=== PATIENT | female | born 1960 | race Caucasian/White ===

== ENCOUNTER 2017-06-30 09:14 | Day surgery (SDC) | payer BC ==
[2017-06-30] MEDS ORDERED: PROPOFOL 20 ML ONE ×2 (09:50)
[2017-06-30 09:58] VITALS: BMI 37.7
[2017-06-30 11:07] VITALS: TEMP 97.9
[2017-06-30 12:05] VITALS: BP 112/66; PULSE 51
--- NOTE | 2017-07-01 19:09 | PATH ---
Surgical Pathology Report Patient Name: ARCHIE WU [facility]. Rec. #: [id number] /Age/Gender: 1960 (Age: 57) / F Account: [id number] Location: [facility]-ENDOSCOPY Taken: 06/30/2017 Received: 06/30/2017 Reported: 07/01/2017 Physicians: María Velasquez M.D. Specimen(s) Received A: POLYP SIGMOID B: BX PROXIMAL TRANSVERSE COLON C: BX CECAL POLYP D: BX RIGHT COLON POLYP E: BX MID TRANSVERSE COLON F: RECTAL POLYP Clinical History Diverticulitis Diverticulosis, colon polyps, hemorrhoids Final Diagnosis A. SIGMOID COLON, POLYP, BIOPSY: HYPERPLASTIC POLYP. B. PROXIMAL TRANSVERSE COLON, POLYP, BIOPSY: COLONIC MUCOSA WITH UNDERLYING MATURE ADIPOSE TISSUE, SUGGESTIVE OF SUBMUCOSAL LIPOMA. C. CECUM, POLYP, BIOPSY: HYPERPLASTIC POLYP. D. COLON, RIGHT, POLYP, BIOPSY: POLYPOID COLONIC MUCOSA WITH LYMPHOID AGGREGATE AND SUPERFICIAL HYPERPLASTIC FEATURES. E. MID TRANSVERSE COLON, BIOPSY: POLYPOID COLONIC MUCOSA WITH LYMPHOID AGGREGATE AND SUPERFICIAL HYPERPLASTIC FEATURES. F. RECTUM, POLYP, BIOPSY: HYPERPLASTIC POLYP. Electronically Signed Loraine Balbuena M.D. Gross Description A. Received in formalin, labeled "sigmoid polyp" is a syed, irregular portion of soft tissue measuring 0.2 cm. in greatest dimension. The specimen is submitted in toto in one cassette. B. Received in formalin, labeled "proximal transverse colon polyp" is a syed, irregular portion of soft tissue measuring 0.3 cm. in greatest dimension. The specimen is submitted in toto in one cassette. C. Received in formalin, labeled "cecal polyps" are 5 syed, irregular portions of soft tissue averaging 0.1 cm. in greatest dimension. The specimens are submitted in toto in one cassette. D. Received in formalin, labeled "right colon polyp" are 4 syed, irregular portions of soft tissue ranging from 0.1-0.2 cm. in greatest dimension. The specimens are submitted in toto in one cassette. E. Received in formalin, labeled "mid transverse colon" is a syed, irregular portion of soft tissue measuring 0.3 cm. in greatest dimension. The specimen is submitted in toto in one cassette. F. Received in formalin, labeled "biopsy rectal colon polyp" are 2 syed, irregular portions of soft tissue averaging 0.2 cm. in greatest dimension. The specimens are submitted in toto in one cassette. 06/30/201706/30/2017
== END 2017-06-30 12:04 | disposition home or self-care (01) ==
LOC: JASU-ENDO 09:14
PROVIDERS: ATTEND Internal Medicine Gastroenterology
PROC: 0DBL8ZX Excision of Transverse Colon, Via Natural or Artificial Opening Endoscopic, Diagnostic (ICD-10-PCS; 2017-06-30)
PROC: 0DBN8ZX Excision of Sigmoid Colon, Via Natural or Artificial Opening Endoscopic, Diagnostic (ICD-10-PCS; 2017-06-30)
PROC: 0DBK8ZX Excision of Ascending Colon, Via Natural or Artificial Opening Endoscopic, Diagnostic (ICD-10-PCS; 2017-06-30)
PROC: 0DBP8ZX Excision of Rectum, Via Natural or Artificial Opening Endoscopic, Diagnostic (ICD-10-PCS; 2017-06-30)
PROC: 0DBH8ZX Excision of Cecum, Via Natural or Artificial Opening Endoscopic, Diagnostic (ICD-10-PCS; principal; 2017-06-30 10:00)
DX: Z12.11 Encounter for screening for malignant neoplasm of colon (principal); Z86.010 Personal history of colon polyps; Z80.0 Family history of malignant neoplasm of digestive organs; D12.2 Benign neoplasm of ascending colon; D12.0 Benign neoplasm of cecum; D12.5 Benign neoplasm of sigmoid colon; D12.3 Benign neoplasm of transverse colon; K62.1 Rectal polyp; K57.30 Diverticulosis of large intestine without perforation or abscess without bleeding
CPT/HCPCS: 88305-TC

== ENCOUNTER 2019-09-10 06:20 | Day surgery (SDC) | payer BC ==
[2019-09-09 10:39] VITALS: BMI 38.0
--- NOTE | 2019-09-10 07:07 | HP ---
History & Physical Update - Physical Physical: No Change - Assessment Assessment: No Change - Plan Plan: No Change (H&P reviwed , no changes , for hysteroscopy D&C)
[2019-09-10] MEDS ORDERED: SUCCINYLCHOLINE CHLORIDE 200 MG/10 ML SYRINGE ONE (07:29)
[2019-09-10] MEDS ORDERED: MIDAZOLAM HCL 2 MG/2 ML SINGLE DOSE VIAL ONE (07:29)
[2019-09-10] MEDS ORDERED: PROPOFOL 20 ML ONE ×2 (07:29)
[2019-09-10] MEDS ORDERED: IBUPROFEN 600 MG TABLET (FP) PO PRN (08:14)
[2019-09-10] MEDS ORDERED: oxyCODONE HCL 5 MG TABLET PO PRN (08:14)
[2019-09-10] MEDS ORDERED: IBUPROFEN 800 MG/8 ML IJ IVPB PRN (08:14)
[2019-09-10] MEDS ORDERED: ONDANSETRON 4 MG/2 ML VIAL IVPUSH PRN (08:14)
[2019-09-10] MEDS ORDERED: ELECTROLYTE-148 SOLN 1,000 ML IV SCH (08:15)
--- NOTE | 2019-09-10 08:29 | OP ---
Operative Note - Note: Operative Date: 09/10/19 Pre-Operative Diagnosis: postmenopausal vaginal bleeding Operation: hysteroscopy , D&C Findings: atrophic EM Surgeon: Guido Yang Anesthesiologist/TRADE SALES ASSISTANT: Hermila Hernandez Anesthesia: General Estimated Blood Loss (mls): 25 Drains & Tubes with Location: none Blood Volume Replaced (mls): 0 Operative Report Dictated: Yes
[2019-09-10] MEDS ORDERED: LACTATED RINGERS SOLUTION 1,000 ML IV SCH (09:15)
--- NOTE | 2019-09-10 10:22 | OP ---
DATE OF OPERATION: 09/10/2019 PREOPERATIVE DIAGNOSIS: Postmenopausal bleeding. POSTOPERATIVE DIAGNOSIS: Postmenopausal bleeding, atrophic endometrium. PROCEDURE: Hysteroscopy, dilation and curettage. SURGEON: Guido Yang MD ANESTHESIA: General. ANESTHESIOLOGIST: Hermila Hernandez MD ESTIMATED BLOOD LOSS: 25 mL. DESCRIPTION OF PROCEDURE: Patient was taken to operating room. Under adequate general anesthesia, abdomen and perineum and vagina were prepped and draped. Examination under anesthesia revealed external genitalia to be normal. Vagina was normal. Small rectocele. Uterus was normal size. Cervix was clean. No lesion. No adnexal masses were palpable. Then with the weighted speculum in the vagina, anterior lip of cervix was grasped with a single-tooth tenaculum. Cervix was gradually dilated with a Hegar dilator and then uterine cavity was sounded to 6 mm. Then hysteroscope was introduced. Visualization of endocervical canal appeared to be normal. Endometrium appeared to be atrophic and hemorrhagic but no polyp and no other abnormality noted. Both cornual regions were identified, and tubal ostia were visualized. Then hysteroscope was withdrawn and then endometrium curetted. Small amount of tissue was obtained. Patient tolerated procedure well. Left the OR in good condition. Muriel [id number]
[2019-09-10 12:34] VITALS: BP 120/66; PULSE 73; TEMP 97.8
--- NOTE | 2019-09-13 15:22 | PATH ---
Surgical Pathology Report Patient Name: ARCHIE WU [facility]. Rec. #: [id number] /Age/Gender: 1960 (Age: 59) / F Account: [id number] Location: [facility] Taken: 09/10/2019 Received: 09/10/2019 Reported: 09/13/2019 Physicians: Guido Yang M.D. Specimen(s) Received ENDOMETRIAL CURETTINGS Clinical History Postmenopausal bleeding Final Diagnosis ENDOMETRIAL CURETTINGS, DILATION AND CURETTAGE: FRAGMENTS OF ATROPHIC ENDOMETRIUM AND BENIGN CERVICAL TISSUE. Electronically Signed Loraine Balbuena M.D. Gross Description Received in formalin labeled "endometrial curettings," is a 0.7 x 0.5 x 0.1 cm aggregate of syed-brown soft tissue fragments. The formalin is filtered and the specimen is entirely submitted in one cassette. /09/10/2019 saudi09/10/2019
== END 2019-09-10 13:03 | disposition home or self-care (01) ==
LOC: JASU-SURG 06:20
PROVIDERS: ATTEND Obstetrics & Gynecology
PROC: 0UDB7ZX Extraction of Endometrium, Via Natural or Artificial Opening, Diagnostic (ICD-10-PCS; principal; 2019-09-10 07:30)
PROC: 0UJD8ZZ Inspection of Uterus and Cervix, Via Natural or Artificial Opening Endoscopic (ICD-10-PCS; 2019-09-10 07:30)
DX: N95.0 Postmenopausal bleeding (principal)
CPT/HCPCS: 88305-TC; 94760

== ENCOUNTER 2020-05-15 04:33 | Day surgery (SDC) | payer BC ==
[2020-05-10 14:15] VITALS: BMI 38.7
--- OUTSIDE RECORDS SUMMARY | 2020-05-15 04:37 | XMS ---
:1960 Author Organization [facility] Support Name Relationship Address Phone [facility], [facility] [phone] [place] [address] [facility] [place] [address] [employer]NICIAN [employer] [place] [place], [place] [id number] Re-disclosure Warning The records that you are about to access may contain information from federally- assisted alcohol or drug abuse programs. If such information is present, then the following federally mandated warning applies: This information has been disclosed to you from records protected by federal confidentiality rules (42 CFR part 2). The federal rules prohibit you from making any further disclosure of this information unless further disclosure is expressly permitted by the written consent of the person to whom it pertains or as otherwise permitted by 42 CFR part 2. A general authorization for the release of medical or other information is NOT sufficient for this purpose. The Federal rules restrict any use of the information to criminally investigate or prosecute any alcohol or drug abuse patient.The records that you are about to access may contain highly sensitive health information, the redisclosure of which is protected by Article 27-F of the [facility] Public Health law. If you continue you may haveaccess to information: Regarding HIV / AIDS; Provided by facilities licensed or operated by the [facility] Office of Mental Health; or Provided by the [facility] Office for People With Developmental Disabilities. If such information is present, then the following [facility] mandated warning applies: This information has been disclosed to you from confidential records which are protected by state law. State law prohibits you from making any further disclosure of this information without the specific written consent of the person to whom it pertains, or as otherwise permitted by law. Any unauthorized further disclosure in violation of state law may result in a fine or shelter sentence or both. A general authorization for the release of medical or other information is NOT sufficient authorization for further disclosure. Insurance Providers Payer name Policy type / Policy ID Covered Covered republican's Policy Plan Coverage type republican ID relationship to [place] Information [employer] BC PPO [id number] SP [id number] BC PPO [id number] SP [id number] PPO [id number] SP [id number] Results ID Date Data Source [id number] 05/11/2020 05:30:00 PM EDT [facility] Name Value Range Interpretation Description Data Sup porting Code Source(s) Document(s ) SARS [facility] coronavirus 2 RNA This lab was ordered by [facility] and reported by [facility]. ID Date Data Source [id number] 12/01/2019 04:59:00 PM EDT [facility] Name Value Range Interpretation Description Data Sup porting Code Source(s) Document(s ) SARS [facility] CORONAVIRUS 2 RNA This lab was ordered by [facility] and reported by [facility]. Procedure
[2020-05-15 08:33] VITALS: TEMP 96.8
[2020-05-15 09:45] VITALS: BP 113/63; PULSE 50
--- NOTE | 2020-05-16 13:25 | PATH ---
Surgical Pathology Report Patient Name: ARCHIE WU [facility]. Rec. #: [id number] /Age/Gender: 1960 (Age: 60) / F Account: [id number] Location: [facility]-ENDOSCOPY Taken: 05/15/2020 Received: 05/15/2020 Reported: 05/16/2020 Physicians: María Velasquez M.D. Specimen(s) Received A: RIGHT COLON POLYP B: SIGMOID POLYP Clinical History Screening Postoperative diagnosis: Diverticulosis, colon polyp sigmoid and right colon Final Diagnosis A. RIGHT COLON, POLYP, BIOPSY: HYPERPLASTIC POLYP. B. SIGMOID, POLYP, BIOPSY: SESSILE SERRATED POLYP. Electronically Signed Jessica Trejo M.D. Gross Description A. Received in formalin, labeled "right colon polyp" are 2 syed, irregular portions of soft tissue, each measuring 0.2 cm. in greatest dimension. The specimens are submitted in toto in one cassette. B. Received in formalin, labeled "sigmoid polyp" is a syed, irregular portion of soft tissue measuring 0.3 cm. in greatest dimension. The specimen is submitted in toto in one cassette. DL/05/15/2020 saudi/05/15/2020
== END 2020-05-15 09:45 | disposition home or self-care (01) ==
LOC: JASU-ENDO 04:33 → EDSTATUS 11:31
PROVIDERS: ATTEND Internal Medicine Gastroenterology
PROC: 0DBN8ZX Excision of Sigmoid Colon, Via Natural or Artificial Opening Endoscopic, Diagnostic (ICD-10-PCS; 2020-05-15)
PROC: 0DBK8ZX Excision of Ascending Colon, Via Natural or Artificial Opening Endoscopic, Diagnostic (ICD-10-PCS; principal; 2020-05-15 08:00)
DX: Z12.11 Encounter for screening for malignant neoplasm of colon (principal); D12.2 Benign neoplasm of ascending colon; D12.5 Benign neoplasm of sigmoid colon; Z86.010 Personal history of colon polyps; K64.8 Other hemorrhoids; K57.30 Diverticulosis of large intestine without perforation or abscess without bleeding
CPT/HCPCS: 88305-TC

== ENCOUNTER 2022-04-08 15:30 | Emergency (ER) | payer BC ==
[2022-04-08 16:05] VITALS: BP 125/79; PULSE 75; RESP 18; TEMP 99; BMI 39.3
[2022-04-08] MEDS ORDERED: SODIUM CHLORIDE 1,000 ML IV STA (16:31)
[2022-04-08 17:15] LABS: ALBUMIN 3.9 g/dl (3.4-5.0); CALCIUM 9.6 mg/dl (8.5-10); MAGNESIUM 2.1 mg/dL (1.8-2.4); TOT PROT 6.9 g/dl (6.4-8.2)
[2022-04-08 17:28] LABS: HEMATOCRIT 40.2 % (32.4-45.2); HEMOGLOBIN 13.2 G/dL (10.7-15.3); MCH 23.2 pg (25.7-33.7); MCHC 32.7 g/dl (32.0-36.0); MEAN PLT VOLUME 9.3 fl (7.5-11.1); RBC 5.66 10^6/uL (3.60-5.2); RDW 17.1 % (11.6-15.6); WHITE BLOOD COUNT 7.7 10^3/uL (4.0-10.8)
[2022-04-08 18:43] LABS: EPITHELIAL CELLS FEW /hpf
[2022-04-08 18:45] LABS: ANISOCYTOSIS 1+; PLATELET ESTIMATE ADEQUATE
[2022-04-08] MEDS ORDERED: ACETAMINOPHEN 1000 MG/100 ML BAG IVPB ONE (19:42)
[2022-04-08] MEDS ORDERED: ACETAMINOPHEN INJECTION 100 ML IVPB ONE (19:42)
== END 2022-04-08 20:16 | disposition home or self-care (01) ==
LOC: FER 15:30
PROC: 3E0333Z Introduction of Anti-inflammatory into Peripheral Vein, Percutaneous Approach (ICD-10-PCS; principal; 2022-04-08)
PROC: 3E0337Z Introduction of Electrolytic and Water Balance Substance into Peripheral Vein, Percutaneous Approach (ICD-10-PCS; 2022-04-08)
DX: R10.31 Right lower quadrant pain (principal); R19.7 Diarrhea, unspecified
CPT/HCPCS: 36415; 74177-TC; 80053; 81003; 81015; 83605; 83735; 84100; 85027; 87086; 99285-25; Q9967

== ENCOUNTER 2024-03-03 16:35 | Emergency (ER) | payer OTHER, BC ==
[2024-03-03 17:24] LABS: ALK PHOS 66 U/L (45-117); ANION GAP 7 mmol/L (4-13); BILIRUBIN,TOTAL 0.9 mg/dl (0.2-1); CALCIUM 9.5 mg/dl (8.5-10.1); CHLORIDE 105 mmol/L (98-107); CO2 28 mmol/L (21-32); CREATININE 1.1 mg/dl (0.6-1.3); GLUCOSE,RANDOM 115 mg/dl (74-106); MAGNESIUM 2.1 mg/dL (1.8-2.4); POTASSIUM 3.8 mmol/L (3.5-5.1); SGOT/AST 19 U/L (15-37); SGPT/ALT 27 U/L (7-52); SODIUM 140 mmol/L (136-145); TOT PROT 6.2 g/dl (6.4-8.2)
[2024-03-03 17:26] LABS: HEMATOCRIT 41.4 % (32.4-45.2); HEMOGLOBIN 12.9 G/dL (10.7-15.3); MCH 22.5 pg (25.7-33.7); MEAN CELL VOLUME 72.5 fl (80-96); MEAN PLT VOLUME 9.5 fl (7.5-11.1); RBC 5.71 10^6/uL (3.60-5.2); RDW 17.1 % (11.6-15.6); WHITE BLOOD COUNT 6.7 10^3/uL (4.0-10.8)
[2024-03-03 17:27] VITALS: BP 94/63; PULSE 65; RESP 18; TEMP 99.3; BMI 37.5
[2024-03-03 17:41] LABS: PLATELET ESTIMATE ADEQUATE
[2024-03-03 18:57] LABS: N-TERMINAL BNP 160.2 pg/ml (5-125)
== END 2024-03-03 19:07 | disposition home or self-care (01) ==
LOC: FER 16:35
DX: M54.9 Dorsalgia, unspecified (principal); R07.9 Chest pain, unspecified; R06.02 Shortness of breath; R05.9 Cough, unspecified; Z20.822 Contact with and (suspected) exposure to COVID-19
CPT/HCPCS: 0241U-QW; 36415; 71046-TC-FY; 80053; 83735; 83880; 84484; 85027; 93005; 99285-25

== ENCOUNTER 2024-04-08 15:07 | Emergency (ER) | payer OTHER, BC ==
[2024-04-08 15:45] VITALS: BP 115/94; PULSE 80; RESP 16; TEMP 100.6; BMI 39.4
[2024-04-08] MEDS ORDERED: ALBUTEROL SO4 2.5/IPRATROPIUM 0.5 INH SOL 3 ML VIAL.NEB. NEB ONE (16:14)
[2024-04-08] MEDS: ALBUTEROL SO4 2.5/IPRATROPIUM 0.5 INH SOL 3 ML VIAL.NEB. NEB ONE (16:29)
[2024-04-08] MEDS ORDERED: ACETAMINOPHEN 325 MG TABLET (FP) ONE (16:55)
[2024-04-08] MEDS: ACETAMINOPHEN 500 MG TABLET (FP) PO ONE (17:05)
== END 2024-04-08 17:22 | disposition home or self-care (01) ==
LOC: FER 15:07
PROC: 3E0F7GC Introduction of Other Therapeutic Substance into Respiratory Tract, Via Natural or Artificial Opening (ICD-10-PCS; principal; 2024-04-08)
DX: U07.1 COVID-19 (principal); J44.1 Chronic obstructive pulmonary disease with (acute) exacerbation
CPT/HCPCS: 0241U-QW; 71046-TC-FY; 93005; 99285-25

== ENCOUNTER 2024-04-11 08:48 | Emergency (ER) | payer OTHER, BC ==
[2024-04-11 09:01] VITALS: BMI 39.4
[2024-04-11] MEDS ORDERED: ACETAMINOPHEN INJECTION 100 ML ONE (09:10)
[2024-04-11] MEDS ORDERED: LOPERAMIDE HCL 2 MG CAPSULE ONE (09:10)
[2024-04-11] MEDS: LOPERAMIDE HCL 2 MG CAPSULE PO ONE (09:28)
[2024-04-11] MEDS: ACETAMINOPHEN 1000 MG/100 ML BAG IVPB ONE (09:28)
[2024-04-11] MEDS: SODIUM CHLORIDE 1,000 ML IV STA (09:29)
[2024-04-11 10:05] LABS: HEMATOCRIT 41.4 % (32.4-45.2); HEMOGLOBIN 12.9 G/dL (10.7-15.3); MCH 21.8 pg (25.7-33.7); MCHC 31.2 g/dl (32.0-36.0); MEAN CELL VOLUME 69.8 fl (80-96); MEAN PLT VOLUME 9.5 fl (7.5-11.1); PLATELET COUNT 190.5 10^3/uL (134-434); RBC 5.93 10^6/uL (3.60-5.2); RDW 17.3 % (11.6-15.6); WHITE BLOOD COUNT 9.8 10^3/uL (4.0-10.8)
[2024-04-11 10:26] LABS: ALBUMIN 3.8 g/dl (3.4-5.0); ALK PHOS 70 U/L (45-117); ANION GAP 12 mmol/L (4-13); ANISOCYTOSIS 1+; BILIRUBIN,TOTAL 0.9 mg/dl (0.2-1); CALCIUM 9.2 mg/dl (8.5-10.1); CHLORIDE 102 mmol/L (98-107); CO2 20 mmol/L (21-32); CREATININE 1.2 mg/dl (0.6-1.3); GLUCOSE,RANDOM 130 mg/dl (74-106); PLATELET ESTIMATE ADEQUATE; POTASSIUM 3.7 mmol/L (3.5-5.1); SGOT/AST 25 U/L (15-37); SGPT/ALT 24 U/L (7-52); SODIUM 134 mmol/L (136-145); TOT PROT 6.5 g/dl (6.4-8.2)
[2024-04-11 12:11] VITALS: BP 103/65; PULSE 72; RESP 16; TEMP 99.5
[2024-04-11] MEDS ORDERED: AMOX TR/POT CLAV 875MG/125MG TABLETS (FP) ONE (12:31)
[2024-04-11] MEDS: AMOX TR/POT CLAV 875MG/125MG TABLETS (FP) PO ONE (12:36)
== END 2024-04-11 13:09 | disposition home or self-care (01) ==
LOC: FER 08:48
PROC: 3E033NZ Introduction of Analgesics, Hypnotics, Sedatives into Peripheral Vein, Percutaneous Approach (ICD-10-PCS; principal; 2024-04-11)
PROC: 3E0337Z Introduction of Electrolytic and Water Balance Substance into Peripheral Vein, Percutaneous Approach (ICD-10-PCS; 2024-04-11)
DX: K52.9 Noninfective gastroenteritis and colitis, unspecified (principal); R50.9 Fever, unspecified; R05.9 Cough, unspecified; R53.83 Other fatigue; R10.84 Generalized abdominal pain
CPT/HCPCS: 36415; 74177-TC; 80053; 85027; 99285-25; J0131; Q9967

== ENCOUNTER 2024-04-21 13:59 | Inpatient (IN) | payer OTHER, BC ==
[2024-04-21] MEDS ORDERED: KETOROLAC TROMETHAMINE 30 MG/1 ML VIAL ONE (15:19)
[2024-04-21] MEDS: KETOROLAC TROMETHAMINE 30 MG/1 ML VIAL IVPUSH ONE (15:25)
[2024-04-21 15:54] LABS: HEMATOCRIT 40.3 % (32.4-45.2); HEMOGLOBIN 12.3 G/dL (10.7-15.3); MCH 21.6 pg (25.7-33.7); MCHC 30.4 g/dl (32.0-36.0); MEAN PLT VOLUME 9.8 fl (7.5-11.1); PLATELET COUNT 398.2 10^3/uL (134-434); RBC 5.68 10^6/uL (3.60-5.2); RDW 17.9 % (11.6-15.6); WHITE BLOOD COUNT 13.5 10^3/uL (4.0-10.8)
[2024-04-21 16:02] LABS: PLATELET ESTIMATE ADEQUATE
[2024-04-21 16:30] LABS: ALBUMIN 4.1 g/dl (3.4-5.0); BILIRUBIN,TOTAL 1.5 mg/dl (0.2-1); CALCIUM 9.9 mg/dl (8.5-10.1); CREATININE 0.9 mg/dl (0.6-1.3); POTASSIUM 4.2 mmol/L (3.5-5.1); TOT PROT 6.9 g/dl (6.4-8.2)
[2024-04-21] MEDS: SODIUM CHLORIDE 0.9% 500 ML INFUS.BAG IV ONE (16:47)
[2024-04-21] MEDS ORDERED: morphine SULFATE 4 MG/ML VIAL ONE (17:00)
[2024-04-21] MEDS ORDERED: methylPREDNISolone NA SUCC 125 MG/2 ML VIAL ONE (17:01)
[2024-04-21] MEDS: methylPREDNISolone NA SUCC 125 MG/2 ML VIAL IVPUSH ONE (17:10)
[2024-04-21] MEDS: morphine CARPU-JECT 4 MG/1 ML DISP.SYRIN IVPUSH ONE (17:14)
[2024-04-21 21:06] LABS: URIC ACID 5.3 mg/dl (2.6-7.2)
[2024-04-21] MEDS: ACETAMINOPHEN 325 MG TABLET (FP) PO PRN (21:34)
[2024-04-21] MEDS: oxyCODONE HCL 5 MG TABLET PO PRN (21:35)
[2024-04-22] MEDS: LEVOTHYROXINE NA 75 MCG TABLET (FP) PO SCH (06:46)
[2024-04-22 08:36] LABS: CALCIUM 9.1 mg/dl (8.5-10.1); CREATININE 0.9 mg/dl (0.6-1.3); POTASSIUM 4.2 mmol/L (3.5-5.1)
[2024-04-22 09:50] LABS: BASO % 0.2 % (0-2.0); HEMATOCRIT 32.7 % (32.4-45.2); HEMOGLOBIN 10.3 GM/dL (10.7-15.3); LYMPH % 8.1 % (8-40); MCH 21.6 pg (25.7-33.7); MCHC 31.5 g/dl (32.0-36.0); MEAN CELL VOLUME 68.6 fl (80-96); MEAN PLT VOLUME 8.8 fl (7.5-11.1); MONO % 6.9 % (3.8-10.2); NEUT % 84.8 % (42.8-82.8); PLATELET COUNT 351 10^3/uL (134-434); RBC 4.77 M/mm3 (3.60-5.2); RDW 15.4 % (11.6-15.6); WHITE BLOOD COUNT 11.1 K/mm3 (4.0-10.0)
[2024-04-22] MEDS ORDERED: predniSONE 20 MG TABLET (UD) PO SCH (10:00)
[2024-04-22] MEDS ORDERED: ALLOPURINOL 100 MG TABLET (FP) PO SCH (10:00)
[2024-04-22] MEDS: oxyCODONE HCL 5 MG TABLET PO PRN (10:06)
[2024-04-22] MEDS: COLCHICINE 0.6 MG TAB PO SCH (10:07)
[2024-04-22] MEDS: ENOXAPARIN NA (PORCINE) 40 MG/0.4 ML DISP.SYRIN SQ SCH (10:08)
[2024-04-22] MEDS: SODIUM CHLORIDE 1,000 ML IV SCH (10:09)
[2024-04-22 11:00] LABS: ANISOCYTOSIS 1+; MACROCYTOSIS 0
[2024-04-22 12:30] LABS: ERYTHROCYTE SEDIMENTATION RATE 34 mm/hr (0-30)
[2024-04-22] MEDS: CEFTRIAXONE 1 GM in DEXTROSE 5%-WATER - 50 ML IVPB SCH (19:28)
[2024-04-22] MEDS: VANCOMYCIN/WATER FOR INJ (PEG) 1,000 MG/200 ML BAG IVPB ONE (20:11)
[2024-04-23 08:52] LABS: ALBUMIN 3.2 g/dl (3.4-5.0); POTASSIUM 4.4 mmol/L (3.5-5.1); TOT PROT 5.5 g/dl (6.4-8.2)
[2024-04-23 11:13] LABS: BASO % 0.4 % (0-2.0); EOS % 0.5 % (0-4.5); HEMOGLOBIN 10.9 GM/dL (10.7-15.3); LYMPH % 19.7 % (8-40); MEAN CELL VOLUME 68.7 fl (80-96); MEAN PLT VOLUME 8.8 fl (7.5-11.1); MONO % 10.8 % (3.8-10.2); NEUT % 68.6 % (42.8-82.8); PLATELET COUNT 342 10^3/uL (134-434); RBC 4.94 M/mm3 (3.60-5.2); RDW 15.4 % (11.6-15.6); WHITE BLOOD COUNT 8.5 K/mm3 (4.0-10.0)
[2024-04-23 13:59] VITALS: BMI 39.6
[2024-04-23] MEDS: VANCOMYCIN PREMIX 1.5 GM 1,500 MG/300 ML BAG IVPB SCH (17:13)
[2024-04-23 21:07] LABS: CYCLIC CITRULLINE PEPTIDE AB 6 units (0-19)
[2024-04-24 09:11] LABS: ALBUMIN 3.1 g/dl (3.4-5.0); CALCIUM 8.8 mg/dl (8.5-10.1); CREATININE 0.9 mg/dl (0.6-1.3); POTASSIUM 4.4 mmol/L (3.5-5.1); TOT PROT 5.4 g/dl (6.4-8.2)
[2024-04-24] MEDS ORDERED: NAPHAZOLINE/PHENIRAMINE OPHTHALMIC 15 ML BOTTLE OU SCH (10:00)
[2024-04-24] MEDS: NAPHAZOLINE/PHENIRAMINE OPHTHALMIC 15 ML BOTTLE OU SCH (10:26)
[2024-04-24] MEDS: NAPROXEN 500 MG TABLET PO SCH (10:27)
[2024-04-24 10:44] LABS: BASO % 1.1 % (0-2.0); EOS % 1.4 % (0-4.5); HEMATOCRIT 33.4 % (32.4-45.2); HEMOGLOBIN 10.3 GM/dL (10.7-15.3); LYMPH % 26.8 % (8-40); MCH 21.3 pg (25.7-33.7); MCHC 30.8 g/dl (32.0-36.0); MEAN CELL VOLUME 69.4 fl (80-96); MEAN PLT VOLUME 8.9 fl (7.5-11.1); MONO % 8.4 % (3.8-10.2); NEUT % 62.3 % (42.8-82.8); PLATELET COUNT 343 10^3/uL (134-434); RBC 4.82 M/mm3 (3.60-5.2); RDW 15.3 % (11.6-15.6); WHITE BLOOD COUNT 6.9 K/mm3 (4.0-10.0)
[2024-04-24] MEDS: INDOMETHACIN 50 MG CAPSULE PO SCH (14:00)
[2024-04-24] MEDS ORDERED: INDOMETHACIN 25 MG CAPSULE PO SCH (16:00)
[2024-04-24] MEDS: INDOMETHACIN 25 MG CAPSULE PO SCH (16:06)
[2024-04-24] MEDS: oxyCODONE HCL 5 MG TABLET PO PRN (21:12)
[2024-04-25 09:09] LABS: BILIRUBIN,TOTAL 0.8 mg/dl (0.2-1); CALCIUM 8.9 mg/dl (8.5-10.1); CREATININE 0.9 mg/dl (0.6-1.3); TOT PROT 5.2 g/dl (6.4-8.2)
[2024-04-25 09:59] LABS: EOS % 3.1 % (0-4.5); HEMATOCRIT 32.7 % (32.4-45.2); HEMOGLOBIN 10.2 GM/dL (10.7-15.3); LYMPH % 33.3 % (8-40); MCH 21.6 pg (25.7-33.7); MCHC 31.2 g/dl (32.0-36.0); MEAN CELL VOLUME 69.3 fl (80-96); MEAN PLT VOLUME 8.9 fl (7.5-11.1); MONO % 8.6 % (3.8-10.2); PLATELET COUNT 337 10^3/uL (134-434); RBC 4.71 M/mm3 (3.60-5.2); RDW 15.3 % (11.6-15.6); WHITE BLOOD COUNT 5.9 K/mm3 (4.0-10.0)
[2024-04-25] MEDS ORDERED: POLYMYXIN B SULFATE/TMP 10 ML OPHTHALMIC SOLUTION OU SCH (14:00)
[2024-04-25] MEDS: TETRAHYDROZOLINE HCL EYE DROPS OU SCH (14:28)
[2024-04-26 09:06] LABS: ALBUMIN 3.1 g/dl (3.4-5.0); BILIRUBIN,TOTAL 0.8 mg/dl (0.2-1); CALCIUM 9.1 mg/dl (8.5-10.1); CREATININE 0.7 mg/dl (0.6-1.3); POTASSIUM 4.6 mmol/L (3.5-5.1); TOT PROT 5.4 g/dl (6.4-8.2)
[2024-04-26 10:03] VITALS: RESP 18; TEMP 98.2
[2024-04-26 10:30] LABS: BASO % 0.8 % (0-2.0); EOS % 2.7 % (0-4.5); HEMATOCRIT 32.6 % (32.4-45.2); HEMOGLOBIN 10.5 GM/dL (10.7-15.3); LYMPH % 26.6 % (8-40); MCH 22.1 pg (25.7-33.7); MEAN PLT VOLUME 8.8 fl (7.5-11.1); MONO % 8.8 % (3.8-10.2); NEUT % 61.1 % (42.8-82.8); PLATELET COUNT 376 10^3/uL (134-434); RBC 4.73 M/mm3 (3.60-5.2); RDW 15.4 % (11.6-15.6); WHITE BLOOD COUNT 5.5 K/mm3 (4.0-10.0)
[2024-04-26 14:24] VITALS: BP 108/51; PULSE 63
== END 2024-04-26 16:23 | disposition home or self-care (01) | DRG 558 ==
LOC: FER 13:59 → FM/S 16:59 → OBSVTOIN 04-23 07:49
PROVIDERS: ADMIT Internal Medicine
PROC: 0S9D3ZX Drainage of Left Knee Joint, Percutaneous Approach, Diagnostic (ICD-10-PCS; principal; 2024-04-22)
DX: M70.52 Other bursitis of knee, left knee (principal); E03.9 Hypothyroidism, unspecified; M10.9 Gout, unspecified; R73.03 Prediabetes; K21.9 Gastro-esophageal reflux disease without esophagitis; K76.0 Fatty (change of) liver, not elsewhere classified; K58.9 Irritable bowel syndrome, unspecified; J45.909 Unspecified asthma, uncomplicated; R60.0 Localized edema; R80.9 Proteinuria, unspecified; J44.9 Chronic obstructive pulmonary disease, unspecified; D56.3 Thalassemia minor; K59.00 Constipation, unspecified; R26.2 Difficulty in walking, not elsewhere classified; E66.9 Obesity, unspecified; Z68.39 Body mass index [BMI] 39.0-39.9, adult
CPT/HCPCS: 36415; 73140-TC-RT-FY; 73562-TC-LT-FY; 73630-TC-RT-FY; 80048; 80053; 81003; 81015; 84550; 85025; 85027; 85651; 86038; 86140; 86200; 86431; 86618; 87040; 87070; 87075; 87086; 87186; 87205; 87491; 87591; 87635; 87661; 89060; 93970-TC; 97116-GP; 97162-GP; 99285-25; G0378; G0480